=== PATIENT | male | born 1940 | race Caucasian/White ===

== ENCOUNTER 2019-06-23 11:35 | Observation (INO) | payer MEDICARE, OTHER ==
[2019-06-23] VITALS (16 sets, daily range): BP systolic 120–172; BP diastolic 60–92
[~2019-06-23] VITALS: Ht 175.3 cm; Wt 85.0 kg
[2019-06-23 12:52] LABS: BASOPHILS % (AUTO) 0.2 % (0-1); EOSINOPHILS % (AUTO) 0 % (0-6); LYMPHOCYTES # (AUTO) 0.9 X10'3 (1.1-4.8); LYMPHOCYTES % (AUTO) 9.1 % (21-51); MEAN CORPUSCULAR HEMOGLOBIN 32.3 PG (27.0-31.0); MEAN CORPUSCULAR HGB CONC 34.4 g/dL (33.0-36.5); MEAN CORPUSCULAR VOLUME 93.9 FL (78-98); MEAN PLATELET VOLUME 9.8 FL (7.4-10.4); MONOCYTES # (AUTO) 0.5 X10'3 (0-0.9); MONOCYTES % (AUTO) 5.4 % (2-12); NEUTROPHILS # (AUTO) 8.2 X10'3 (1.8-7.7); NEUTROPHILS % (AUTO) 85.3 % (42-75); PRE OP HEMATOCRIT 48.7 % (42.0-52.0); PRE OP HEMOGLOBIN 16.7 g/dL (14.0-17.9); PRE OP PLATELET COUNT 179 X10'3 (140-440); RED BLOOD COUNT 5.18 X10'6 (4.70-6.10); RED CELL DISTRIBUTION WIDTH 13.4 % (11.5-14.5)
[2019-06-23 13:08] LABS: ALBUMIN 3.9 G/DL (3.4-5.0); ALBUMIN/GLOBULIN RATIO 0.9 (1.1-1.5); ALKALINE PHOSPHATASE 65 IU/L (46-116); BLOOD UREA NITROGEN 25 MG/DL (7-18); BUN/CREATININE RATIO 15.9 (5.4-32.0); CALCIUM 9.2 MG/DL (8.5-10.1); CHLORIDE 105 MMOL/L (99-107); CREATININE 1.57 MG/DL (0.60-1.10); PRE OP ALT 26 U/L (30-65); PRE OP ANION GAP 12 (8-16); PRE OP AST 15 U/L (10-37); PRE OP BILIRUB, TOTAL 1.3 MG/DL (0.0-1.0); PRE OP GLUCOSE 158 MG/DL (70-104); PRE OP POTASSIUM 3.9 MMOL/L (3.4-5.1); PRE OP SODIUM 141 MMOL/L (135-145); TOTAL CARBON DIOXIDE 24.1 MMOL/L (24-32); TOTAL PROTEIN 8.1 G/DL (6.4-8.2); eGFR 43 ML/MIN
[2019-06-23] MEDS ORDERED: LEVO100T78 PO (13:28)
[2019-06-23] MEDS ORDERED: LOSA100T57 PO (13:28)
[2019-06-23] MEDS ORDERED: OMEP40CA13 PO (13:28)
[2019-06-23] MEDS ORDERED: ringers solution, lacted 1,000 ML IV SCH (14:22)
[2019-06-23] MEDS ORDERED: proCHLORperazine 10 MG/2 ml inj IV PRN (14:25)
[2019-06-23] MEDS ORDERED: morphine 4 MG/ML inj SYRINge IV PRN ×2 (14:25)
[2019-06-23] MEDS ORDERED: ondansetron/PF 4mg/2ml inj IV PRN ×2 (14:25→16:00)
[2019-06-23] MEDS ORDERED: meperidine/PF 25mg/ml syringe IV PRN ×2 (14:25)
[2019-06-23] MEDS ORDERED: ceFAZolin 1000mg inj ONE (14:36)
[2019-06-23] MEDS ORDERED: BUPIVAcaine/PF 2.5 mg/ml (0.25%) 30ml vial ONE (14:36)
[2019-06-23] MEDS ORDERED: ketorolac trometh. 30mg/ml inj. ONE (15:03)
[2019-06-23] MEDS ORDERED: glycopyrrolate 0.2mg/ml inj ONE (15:03)
[2019-06-23] MEDS ORDERED: desflurane 240ml liquid inh. IH ONE (15:03)
[2019-06-23] MEDS ORDERED: neostigmine methylsulfate 1 MG/ML 10ml vial ONE (15:03)
[2019-06-23] MEDS ORDERED: LIDOcaine 1%/PF 5ML 10 MG/ML VIAL ONE (15:03)
[2019-06-23] MEDS ORDERED: fentaNYL/PF 50MCG/1 ML 2ML syringe ONE (15:08)
[2019-06-23] MEDS ORDERED: midazolam 2 mg/2 ml injection ONE (15:08)
[2019-06-23] MEDS ORDERED: propofol inj 20 ML IV ONE (15:09)
[2019-06-23] MEDS ORDERED: dexamethasone sod phosphate 4mg/ml inj. ONE (15:09)
[2019-06-23] MEDS ORDERED: ondansetron/PF 4mg/2ml inj ONE (15:09)
[2019-06-23] MEDS ORDERED: rocuronium 10mg/ml inj IV ONE (15:19)
[2019-06-23] MEDS ORDERED: ceFOXitin 2 GM ADDvantage bag 100 ML IV ONE (15:25)
[2019-06-23] MEDS ORDERED: HYDROcodone/acetaminophen 10/325mg tab PO PRN (16:00)
--- NOTE | 2019-06-23 16:31 | NUR ---
Received from OR via SURGICAL BED , accompanied by Anesthesiologist SEVERIANO and report given by Anesthesiolgist. PATIENT WITH 4 ABDOMINAL BANDAIDS, ALL CDI. PATIENT WITH 10L MASK ON WITH 96% SATURATIONS, VSS. DENIES PAIN AT THIS TIME. 20G PIV IN RIGHT HAND RUNNING LR AT 100. Addendum: 06/23/19 at 1642 by Rikc Long RN, RN Amended: Links added.
[2019-06-23] MEDS: meperidine/PF 25mg/ml syringe IV PRN ×2 (16:57→17:12)
--- NOTE | 2019-06-23 17:03 | NUR ---
ADDENDUM. PATIENT HAS ONE HEARING AIDE IN LEFT EAR. THIS IS PRESENT AND IN HIS EAR. STATES THAT IS HIS ONLY ONE. Addendum: 06/23/19 at 1707 by Rick Long RN, RN Amended: Links added.
--- NOTE | 2019-06-23 17:21 | NUR ---
ALL CRITERIA FOR TRANSFER TO THE FLOOR HAS BEEN ACHIEVED. VSS. BED LOW, CALL LIGHT AND VS. SET IN PLACE. RN PRESENT TO ACCEPT CARE. PATIENT RESTING COMFORTABLY IN BED. BELONGINGS SENT WITH PATIENT. DRESSINGS CDI. FAMILY AT BEDSIDE Addendum: 06/23/19 at 1743 by Rick Long RN, RN Amended: Links added.
--- NOTE | 2019-06-23 17:45 | NUR ---
Patient in room [facility]. I have received report from ROMÁN ARMSTRONG and had the opportunity to ask questions and assume patient care.
--- NOTE | 2019-06-23 18:30 | NUR ---
Patient in room [facility]. I have received report from Suha ARMSTRONG and had the opportunity to ask questions and assume patient care. Patient resting in bed, states tolerable pain, will continue to monitor.
--- NOTE | 2019-06-23 18:36 | NUR ---
SETTLED PATIENT IN ROOM VIEWED LAP SITES. vss. rEPORT GIVEN TO ANGELA ARMSTRONG
[2019-06-23] MEDS: normal saline 1000ml 1,000 ML IV SCH (19:12)
[2019-06-23] MEDS: ceFOXitin 1 GM/D5W 50mL IVPB 50 ML IV SCH (19:17)
[2019-06-23] MEDS: HYDROcodone/acetaminophen 5mg/325mg tablet PO PRN (19:33)
[2019-06-24] VITALS: BP 143/78
[2019-06-24] MEDS: ceFOXitin 1 GM/D5W 50mL IVPB 50 ML IV SCH (01:25)
[2019-06-24] MEDS: normal saline 1000ml 1,000 ML IV SCH ×2 (02:00→05:19)
[2019-06-24 04:00] VITALS: BP 146/71
[2019-06-24] MEDS: HYDROcodone/acetaminophen 5mg/325mg tablet PO PRN (04:21)
[2019-06-24 04:52] LABS: BASOPHILS # (AUTO) 0.1 X10'3 (0-0.2); EOSINOPHILS % (AUTO) 0 % (0-6); HEMATOCRIT 43.2 % (42.0-52.0); HEMOGLOBIN 14.9 g/dl (14.0-17.9); LYMPHOCYTES # (AUTO) 0.6 X10'3 (1.1-4.8); LYMPHOCYTES % (AUTO) 5.2 % (21-51); MEAN CORPUSCULAR HEMOGLOBIN 32.4 PG (27.0-31.0); MEAN CORPUSCULAR HGB CONC 34.5 g/dL (33.0-36.5); MEAN CORPUSCULAR VOLUME 93.8 FL (78-98); MEAN PLATELET VOLUME 9.6 FL (7.4-10.4); MONOCYTES # (AUTO) 0.4 X10'3 (0-0.9); MONOCYTES % (AUTO) 3.4 % (2-12); NEUTROPHILS # (AUTO) 9.9 X10'3 (1.8-7.7); NEUTROPHILS % (AUTO) 90.4 % (42-75); PLATELET COUNT 170 X10'3 (140-440); RED BLOOD COUNT 4.61 X10'6 (4.70-6.10); RED CELL DISTRIBUTION WIDTH 13.2 % (11.5-14.5)
[2019-06-24] MEDS ORDERED: ringers solution, lacted 1,000 ML IV SCH (05:00)
[2019-06-24 05:13] LABS: ALBUMIN 3.2 G/DL (3.4-5.0); ANION GAP 8 (8-16); BLOOD UREA NITROGEN 23 MG/DL (7-18); BUN/CREATININE RATIO 12.4 (5.4-32.0); CALCIUM 8.5 MG/DL (8.5-10.1); CHLORIDE 104 MMOL/L (99-107); CREATININE 1.85 MG/DL (0.60-1.10); GLUCOSE 155 MG/DL (70-104); POTASSIUM 4.4 MMOL/L (3.5-5.1); SODIUM 139 MMOL/L (135-145); TOTAL CARBON DIOXIDE 26.6 MMOL/L (24-32); eGFR 36 ML/MIN
[2019-06-24] MEDS ORDERED: famotidine 20mg tablet PO ONE (05:30)
[2019-06-24] MEDS ORDERED: ceFOXitin 2 GM ADDvantage bag 100 ML IV ONE (05:30)
--- NOTE | 2019-06-24 05:38 | NUR ---
Received call from Kelsey in tele box stating that the patient's HR is in the 40s and to assess if he is awake. Patient is awake and watching TV, HR on pulse oximeter states 55. Called tele who states that the patient is now in the 80s. Will continue to monitor.
--- NOTE | 2019-06-24 05:51 | NUR ---
production tech, Kim, called again stating HR in the mid-50s. Entered patient's room, HR 52 on monitor. Once woken and talking HR jumped to 75. Patient states normal HR is in the low 60s. BP 129/60. Will continue to monitor.
--- NOTE | 2019-06-24 06:28 | NUR ---
Patient in room [facility]. I have received report from LUIS ARMSTRONG and had the opportunity to ask questions and assume patient care.
--- NOTE | 2019-06-24 06:41 | NUR ---
Problems reprioritized. Patient report given, questions answered & plan of care reviewed with Melodie ARMSTRONG. Resting in bed, HR 48 until woken, jumped to 80s.
[2019-06-24 07:00] VITALS: BP 137/87
[2019-06-24 07:08] VITALS: BP 141/66
[2019-06-24] MEDS ORDERED: pantoprazole 40mg Tablet.DR PO SCH (07:30)
[2019-06-24] MEDS ORDERED: levoTHYROXINE 100mcg tablet PO SCH (08:00)
[2019-06-24] MEDS ORDERED: enoxaparin 40mg/0.4ml syringe SQ SCH (08:00)
[2019-06-24] MEDS ORDERED: non-formulary drug (Omeprazole (Prilosec) 1 CAP) PO SCH (08:00)
[2019-06-24] MEDS ORDERED: losartan 50mg tablet PO SCH (08:00)
[2019-06-24] MEDS ORDERED: non-formulary drug (Losartan Potassium 1 TAB) PO SCH (08:00)
[2019-06-24] MEDS ORDERED: CIPR-230 PO (08:59)
== END 2019-06-24 11:50 | disposition home or self-care (01) ==
LOC: PAS 11:35 → SUR 3N 16:05
PROVIDERS: ADMIT Surgery; ATTEND Surgery
PROC: 0FT44ZZ Resection of Gallbladder, Percutaneous Endoscopic Approach (ICD-10-PCS; principal; 2019-06-23 15:03)
DX: K80.20 Calculus of gallbladder without cholecystitis without obstruction (principal); K81.0 Acute cholecystitis; I12.9 Hypertensive chronic kidney disease with stage 1 through stage 4 chronic kidney disease, or unspecified chronic kidney disease; N18.3 Chronic kidney disease, stage 3 (moderate); M19.90 Unspecified osteoarthritis, unspecified site; E66.9 Obesity, unspecified; K29.70 Gastritis, unspecified, without bleeding; K62.5 Hemorrhage of anus and rectum; K21.9 Gastro-esophageal reflux disease without esophagitis; E03.9 Hypothyroidism, unspecified; K57.92 Diverticulitis of intestine, part unspecified, without perforation or abscess without bleeding; R73.9 Hyperglycemia, unspecified; I49.9 Cardiac arrhythmia, unspecified; H81.09 Meniere's disease, unspecified ear; L57.0 Actinic keratosis; R53.83 Other fatigue; E83.119 Hemochromatosis, unspecified; Z82.3 Family history of stroke; Z85.46 Personal history of malignant neoplasm of prostate; Z68.28 Body mass index [BMI] 28.0-28.9, adult; Z98.890 Other specified postprocedural states
CPT/HCPCS: 36415; 47562; 80048; 80053; 85025; 93005; 96361; 96365; 96366; 96372; 96375; G0378; J0690; J0694; J1100; J2175; J2250; J2405; J2704; J3010; J3490; J7030; J7120; 88304; A4215; A4618; A7000; J1650; J1885; J2710